=== PATIENT | male | born 2000 | race Caucasian/White ===

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

== ENCOUNTER 2023-06-22 16:02 | Emergency (ER) | payer OTHER ==
[2023-06-22] MEDS ORDERED: LIDOCAINE 2%-EPI 1:100000 20 ML MDV SUBQ STA (16:40)
--- NOTE | 2023-06-22 17:29 | XRAY Report ---
PROCEDURE: Finger(s) LT INDICATIONS: 4TH DIGIT FINGER LAC TECHNIQUE: AP hand, 2 views of the left fourth finger(s) acquired. COMPARISON: None. FINDINGS: Bones: No fractures or dislocations. No suspicious bony lesions. Soft tissues: No suspicious soft tissue calcifications or masses. No radiopaque soft tissue foreig n bodies. IMPRESSION: No acute bony abnormality. No radiopaque soft tissue foreign body. Reviewed by: Jose Alejandro Rodriguez MD on 06/22/2023 5:28 PM [facility] Approved by: Jose Alejandro Rodriguez MD on 06/22/2023 5:28 PM [facility] Station ID: [id number]
--- NOTE | 2023-06-22 18:15 | ED Physician Documentation ---
History of Present Illness - Stated complaint Stated Complaint: L HAND LAC - Chief complaint Chief Complaint: Laceration - Additonal information Additional information: congestive heart failure, COPD, dementia, type 2 diabetes patient 22-year-old male presenting to the emergency department with left hand injury. Patient is [employer]. Today while at work sliced the palm of his left fourth finger on sheet-metal. Reports immunizations up-to-date. Is right- hand dominant. Review of Systems Constitutional: denies: Fever Eyes: denies: Loss of vision Ears: denies: Loss of hearing Nose: denies: Foreign Body Throat: denies: Sore throat Respiratory: denies: Dyspnea : denies: Dysuria PD PAST MEDICAL HISTORY - Past Medical History Past Medical History: No Respiratory: None - Past Surgical History Past Surgical History: Yes Ortho: Other - Present Medications Home Medications: Ambulatory Orders Medication Instructions Recorded Confirmed Doxycycline Hyclate 100 mg PO BID #14 12/27/20 Mupirocin Calcium [Mupirocin] 1 applic TP TID #15 gm 12/27/20 - Allergies Allergies/Adverse Reactions: Allergies Allergy/AdvReac Type Severity Reaction Status Date / Time No Known Drug Allergies Allergy Verified 06/22/23 16:08 - Social History Does the pt smoke?: No Smoking Status: Never smoker Does the pt drink ETOH?: No Does the pt have substance abuse?: No - Immunizations Immunizations are current?: Yes PD ED PE NORMAL - Vitals Vital signs reviewed: Yes - General General: Alert and oriented X 3 - Respiratory Respiratory: No respiratory distress - Extremities Extremities: Other (4 cm diagonal laceration to the ventral surface of the left fourth finger. See [facility] for further description of the wound.) Results - Vitals Vitals: Vital Signs - 24 hr 06/22/23 16:09 Temperature 36.5 C Heart Rate 100 Respiratory 16 Rate Blood Pressure 137/70 H O2 Saturation 100 Oxygen O2 Source Room air Procedures - Laceration (location) Finger left Length in cm: 4 Wound type: Linear, Clean Neurovascular status: Sensory intact, Motor intact Tendon involvement: Tendon Injury (Patient unable to fully flex the distal phalanx of the left fourth finger consistent with flexor digitorum profundus injury) Anesthesia: Other (Digital block with 2% lidocaine with epinephrine. 3 cc used totally) Skin layer closure: Sutures - enter # (7) Other: Patient tolerated well PD Medical Decision Making - ED course Complexity details: reviewed results, d/w patient ED course: Patient 22-year-old male presenting to the emergency department with injury to his left fourth finger. Reported that he cut his finger on sheet-metal immediately prior to arrival. 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 Is right-hand dominant. On arrival he had a 4 cm diagonal laceration extending from the proximal and mid phalanx of the ventral aspect of his left fourth finger. He had good capillary refill and sensation in the affected digit however he was unable to fully flex the Distal phalanx of the finger consistent with an injury to his flexor digitorum profundus tendon. The area was anesthetizDigital block. The wound was rinsed and explored through full range of motion. I was able to identify the distal aspect of the tendon however I was unable to find the proximal segment. I believe it is likely retracted. The wound was loosely closed with 7 simple interrupted stitches. It was dressed in the emergency department. Consulted with Dr. Pedroza, [facility] hand surgery and follow-up arranged. Patient placed in a wrist splint with fingers held in partial flexion. Return precautions given prior to discharge. Departure - Departure Clinical Impression: Finger laceration involving tendon Qualifiers: Encounter type: initial encounter Qualified Code(s): S61.219A - Laceration without foreign body of unspecified finger without damage to nail, initial encounter Comments: Thank you for allowing us to care for you today [facility]. Today in the emergency department you were treated for a laceration to your left fourth finger. Your exam here in the emergency department is concerning for an underlying tendon injury. Please continue to use the splint provided here in the emergency department. Please position the splint as it was demonstrated here in the emergency department to keep your fingers in partial flexion. I have discussed your care with the [facility] hand service. They will be contacting you in the next 1 to 2 days to arrange for follow-up in their clinic. If it anytime you have new or worsening symptoms please not hesitate to return. Forms: PCP List
[2023-06-22 18:52] VITALS: BP 133/86; O2SAT 98
== END 2023-06-22 18:57 | disposition home or self-care (01) ==
LOC: ED 16:02
DX: S61.215A Laceration without foreign body of left ring finger without damage to nail, initial encounter (principal); W26.8XXA Contact with other sharp object(s), not elsewhere classified, initial encounter; Y99.1 Military activity
CPT/HCPCS: 12002; 99283